=== PATIENT | male | born 1960 | race Hispanic/Latino ===

== ENCOUNTER 2017-01-27 09:58 | Day surgery (SDC) | payer BC ==
[2017-01-20 10:51] VITALS: BMI 25.0
[2017-01-27] MEDS ORDERED: Propofol 10 mg/ml Inj (20 ML) ONE ×2 (11:10→12:05)
[2017-01-27] MEDS ORDERED: Midazolam 2 MG/2 ML VIAL ONE (11:56)
[2017-01-27] MEDS ORDERED: Sodium Chloride 0.9% 1,000 ML IV SCH (13:00)
[2017-01-27 14:09] VITALS: RESP 19; O2SAT 100
[2017-01-27 15:33] VITALS: BP 130/57; PULSE 102; TEMP 97.6
== END 2017-01-27 15:05 | disposition home or self-care (01) ==
LOC: ENDO 09:58
PROVIDERS: ATTEND Internal Medicine Gastroenterology
DX: Z12.11 Encounter for screening for malignant neoplasm of colon (principal); K57.30 Diverticulosis of large intestine without perforation or abscess without bleeding; K31.7 Polyp of stomach and duodenum; K59.09 Other constipation; K64.8 Other hemorrhoids; Z86.718 Personal history of other venous thrombosis and embolism; Z86.711 Personal history of pulmonary embolism; Z79.01 Long term (current) use of anticoagulants
CPT/HCPCS: 43239; 43251; 45378; 88305; 88312; 88342; J2250; J2704; J3010; J7040